=== PATIENT | female | born 1995 | race American Indian/Alaskan Native ===

== ENCOUNTER 2018-08-12 00:01 | Emergency (ER) | payer OTHER ==
[2018-08-12 00:13] VITALS: BP 114/70
[2018-08-12] MEDS ORDERED: TYLENOL ONE (00:19)
[2018-08-12] MEDS ORDERED: TYLENOL PO ONE (00:20)
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
== END 2018-08-12 03:33 | disposition home or self-care (01) ==
LOC: ED 00:01
DX: M79.18 Myalgia, other site (principal); M54.6 Pain in thoracic spine; V49.49XA Driver injured in collision with other motor vehicles in traffic accident, initial encounter; Y93.89 Activity, other specified; Y92.89 Other specified places as the place of occurrence of the external cause; Y99.8 Other external cause status
CPT/HCPCS: 72040